=== PATIENT | female | born 1965 | race Caucasian/White ===

== ENCOUNTER 2018-06-14 12:27 | Outpatient (REF) | payer OTHER, SELFPAY | END 2018-06-14 12:47 | LOC: NCHCN 12:27 | PROVIDERS: PCP Family Medicine; Visit Provider Nurse Practitioner Family | DX: R55 Syncope and collapse (principal) | CPT/HCPCS: 87077; 87086; 87186 ==

== ENCOUNTER 2019-05-07 14:20 | Outpatient (REF) | payer OTHER, SELFPAY ==
--- NOTE | 2019-05-07 13:45 | PAPNONF_PTH ---
PATIENT: Megan Corral LOC: [facility] U#:[id number] AGE/SX: 54/F ROOM: RE05/07/[address]: Shelby Montoya : 1965 BED: DIS: 05/07/2019 SPEC #: [id number] RECD: 05/08/19 12:51 STATUS: MARY RERay #: [id number] HERIBERTO: 05/07/19 13:[address]: Shelby Montoya DEPT: [facility] Cytology RECD BY: Latesha Barnett ENTERED: 05/08/19 12:51 SP TYPE: SHAKA GARSIA DR: Yescia Abarca MD Tissues: 1 - BODY FLUID CYTO(SPUTUM/URINE)[facility] Procedures: BODY FLUID CYTO(URINE/SPUTUM) Comments: [id number] (TOTAL VOLUME = 40 ml's) (40 ml's URINE & 40 ml's CYTOLYT ADDED)
== END 2019-05-07 14:40 ==
LOC: NCHCN 14:20
PROVIDERS: PCP Family Medicine; Visit Provider Nurse Practitioner Family
DX: N39.0 Urinary tract infection, site not specified (principal); R31.9 Hematuria, unspecified
CPT/HCPCS: 87086; 88104

== ENCOUNTER 2019-05-29 16:47 | Outpatient (REF) | payer OTHER, SELFPAY ==
[2019-05-29 20:42] LABS: HCT 38.8 % (36.0-46.0); HGB 13.5 g/dL (12.0-15.5); Mean Corp. HGB Concentration 34.8 g/dL (32.0-36.0); Mean Corpuscular Hemoglobin 31.9 pg (27.0-33.0); Mean Corpuscular Volume 91.7 fL (80-95); Mean Platelet Volume 9.8 fL (8.0-11.0); Platelet Count 237 x1000/uL (130-400); RBC 4.23 m/cumm (4.00-5.20); RBC Distribution Width 13.1 % (11.7-14.6)
[2019-05-30 00:03] LABS: Anion Gap 10.3 mmol/L (3-11); BUN 20 mg/dL (7-18); CO2 25.7 mmol/L (21.0-32.0); CREATININE 0.94 mg/dL (0.55-1.02); Calcium 8.5 mg/dL (8.5-10.1); Chloride 104 mmol/L (98-107); Glucose 89 mg/dL (70-100); Potassium 3.8 mmol/L (3.5-5.1); Sodium 140 mmol/L (136-145)
[2019-05-31 10:28] LABS: HIV-1/2 Ag & Ab Screen Negative (NEGAT)
[2019-05-31 10:29] LABS: Hepatitis C Ab w Rflx HCV PCR Negative (NEGAT)
[2019-05-31 11:59] LABS: Lyme Ab w Rflx to Lyme Confirm Negative
[2019-06-01 23:37] LABS: Anaplasma phagocytophilum Negative (Negative); B. miyamotoi PCR Negative (Negative); Babesia divergens/MO-1 Negative (Negative); Babesia duncani Negative (Negative); Babesia microti Negative (Negative); Ehrlichia chaffeensis Negative (Negative); Ehrlichia ewingii/canis Negative (Negative); Ehrlichia muris eauclairensis Negative (Negative)
== END 2019-05-29 17:07 ==
LOC: NCHCN 16:47
PROVIDERS: PCP Family Medicine; Visit Provider Nurse Practitioner Family
DX: N95.9 Unspecified menopausal and perimenopausal disorder (principal); N95.1 Menopausal and female climacteric states; Z11.4 Encounter for screening for human immunodeficiency virus [HIV]; Z11.59 Encounter for screening for other viral diseases
CPT/HCPCS: 80048; 85027; 86803; 87389; 87798; 84443; 86618

== ENCOUNTER 2019-08-22 00:32 | Outpatient (CLI) | payer OTHER, SELFPAY ==
--- NOTE | 2019-08-22 15:05 | DI.CTLCSR_ITS ---
EXAM: CT CHEST LUNG CANCER SCREEN CLINICAL HISTORY: TOBACCO ABUSE CONTINUOUS, F17.200 TECHNIQUE: CT examination of the chest was performed utilizing lung cancer screening protocol with l ow-dose acquisition. COMPARISON: No exams were available for comparison FINDINGS: Images obtained through the upper abdomen show grossly unremarkable appearance of visualized portions of liver, spleen and kidneys. No intrapulmonary nodule is seen. There is no mediastinal or hilar a denopathy. Tracheobronchial tree appears intact. No pleural effusion. There are severe pulmonary emphysematous changes, predominantly central lobular. IMPRESSION: Negative lung cancer screening CT, severe central lobular emphysematous changes noted. Category 1. A nnual screening recommended in 12 months. Lung RADS Cat 1 - Negative: No nodules and definitely benign nodules
== END 2019-08-22 00:52 ==
PROVIDERS: PCP Family Medicine; Visit Provider Nurse Practitioner Family
DX: F17.200 Nicotine dependence, unspecified, uncomplicated (principal); Z12.2 Encounter for screening for malignant neoplasm of respiratory organs; J43.8 Other emphysema
CPT/HCPCS: G0297

== ENCOUNTER 2020-09-18 19:27 | Outpatient (REF) | payer BC, SELFPAY ==
[2020-09-18 20:17] LABS: Absolute Basophil Count 0.03 10^3/uL (0.0-0.2); Absolute Eosinophil Count 0.08 10^3/uL (0.0-0.7); Absolute Lymphocyte Count 1.74 10^3/uL (1.2-3.4); Absolute Monocyte Count 0.42 10^3/uL (0.1-0.8); Absolute Neutrophil Count 1.61 10^3/uL (1.2-6.7); Basophils % 0.8; Eosinophils % 2.1; HCT 38.5 % (36.0-46.0); HGB 12.9 g/dL (11.2-15.7); Lymphocytes % 44.8; MCHC 33.5 % (32.0-36.0); MCV 92.5 fL (80-95); MPV 9.9 fL (8.0-11.0); Monocytes % 10.8; Neutrophils % 41.5; Nucleated RBC 0 %; Platelet Count 195 10^3/uL (130-400); RBC 4.16 10^6/uL (3.93-5.22); WBC 3.88 10^3/uL (4.4-10.8)
[2020-09-18 20:39] LABS: ALT 24 U/L (14-59); AST 21 U/L (15-37); Albumin 3.9 g/dL (3.4-5.0); Alkaline Phosphatase 62 U/L (46-116); Anion Gap 3.9 mmol/L (3-11); BUN 19 mg/dL (7-18); Bilirubin, Total 0.2 mg/dL (0.2-1.0); CO2 30.1 mmol/L (21.0-32.0); CREATININE 0.99 mg/dL (0.55-1.02); Calcium 8.5 mg/dL (8.5-10.1); Chloride 105 mmol/L (98-107); Estimated GFR 58.02 (mL/min/1.73m2); Glucose 107 mg/dL (74-106); Potassium 4.2 mmol/L (3.5-5.1); Sodium 139 mmol/L (136-145); TSH (W/Ref FT4) 3.78 uIU/mL (0.36-3.74)
[2020-09-18 20:59] LABS: FREE T4 0.83 ng/dL (0.76-1.46)
== END 2020-09-18 19:47 ==
LOC: NCHCN 19:27
PROVIDERS: PCP Family Medicine; Visit Provider Physician Assistant
DX: Z00.00 Encounter for general adult medical examination without abnormal findings (principal); F17.200 Nicotine dependence, unspecified, uncomplicated; N95.1 Menopausal and female climacteric states; F32.9 Major depressive disorder, single episode, unspecified; K21.9 Gastro-esophageal reflux disease without esophagitis
CPT/HCPCS: 80053; 84439; 84443; 85025

== ENCOUNTER 2020-09-24 11:57 | Outpatient (REF) | payer BC, SELFPAY ==
[2020-09-25 16:46] LABS: COVID-19 RT-PCR UVMMC Result Positive (Negative)
== END 2020-09-24 12:17 ==
LOC: NCHCN 11:57
PROVIDERS: PCP Family Medicine; Visit Provider Internal Medicine
DX: Z20.822 Contact with and (suspected) exposure to COVID-19 (principal)
CPT/HCPCS: U0003

== ENCOUNTER 2020-12-08 13:38 | Outpatient (CLI) | payer BC, SELFPAY ==
--- NOTE | 2020-12-08 12:45 | DI.RAD_ITS ---
EXAM: XR SHOULDER RT COMPLETE 2+V CLINICAL HISTORY: right shoulder pain TECHNIQUE: COMPARISON: No exams were available for comparison FINDINGS: Two views were obtained. The cartilaginous joint space of the glenohumeral joint appears fairly well maintained. The AC joint appears intact. No significant bony abnormality seen. No soft tissue jess cification identified. IMPRESSION: Negative examination of the shoulder RADIATION DOSE DELIVERED: Total DLP
--- NOTE | 2020-12-08 13:15 | DI.RAD_ITS ---
EXAM: XR ELBOW RT COMPLETE CLINICAL HISTORY: right elbow pain TECHNIQUE: COMPARISON: No exams were available for comparison FINDINGS: Three views were obtained. There is no evidence of an elbow joint effusion or hemarthrosis. No bony abnormality seen. IMPRESSION: RADIATION DOSE DELIVERED: Total DLP
== END 2020-12-08 13:39 | disposition home or self-care (01) ==
LOC: DIORS 13:38
PROVIDERS: PCP Internal Medicine; Referring Provider Internal Medicine; Visit Provider Student in an Organized Health Care Education/Training Program
DX: M25.521 Pain in right elbow (principal); M25.511 Pain in right shoulder
CPT/HCPCS: 73030; 73080

== ENCOUNTER → 2022-05-24 00:51 | Outpatient (CLI) | payer OTHER, SELFPAY ==
--- NOTE | 2022-05-24 10:00 | DI.MRI_ITS ---
Exam(s) MR LUMBAR SPINE WO EXAM: MR LUMBAR SPINE WO CLINICAL HISTORY: CHRONIC LBP, M54.59, S/P WORK INJURY 01/17, SOME IMPROVEMENT W/PT. TECHNIQUE: Multiplanar multisequence MRI of the Lumbar spine was performed. COMPARISON: No exams were available for comparison FINDINGS: There are no plain films available time this MRI interpretation. Therefore 5 lumbar vertebrae are presumed. Conus medullaris is at normal level. There is no evidence of conus mass nor subjacent clumping of in trathecal nerve roots to suggest arachnoiditis. The distal thecal sac appears unremarkable.There is no evidence of Tarlov intrasacral cysts nor other significant findings within the sacral canal. Bones:There are transverse fracture lines in both L4 and L5 vertebral bodies without vertebral height loss and with only minimal bone edema evident in these 2 vertebral bodies. Suspect subacute fractur es. Also small Schmorl's node invagination at superior endplate of L3. With respect to the individual levels... T12-L1: Unremarkable L1-2: Normal disc height and signal. No disc herniation nor central canal stenosis.No foraminal steno sis L2-3: There is mild disc height loss on the right side of this disc space. There is no significant d isc herniation or central canal stenosis. There is no significant foraminal stenosis at this level. No facet arthropathy L3-4: There is anterolisthesis of L3 upon L4, with approximately 6 millimeters anterior slippage of L 3 upon L4, this related to advanced facet arthropathy. There are no pars defects at this level. No pars fractures. There is severe central spinal canal stenosis at this level.This is related to the b road pseudo herniation of the annulus, short AP dimensions the pedicles and degenerative changes in t he facet joints.There is also moderate bilateral foraminal stenosis at this level due to the anterior slippage with the lateral recesses being carried forward and there is also mild disc height loss con tributing. The exiting nerve roots are impinged slightly between the overlying L3 pedicles and subja cent pseudo herniation of the annulus. L4-5: This level exhibits advanced uniform disc height loss and bilateral osteophytes. There is mild -moderate symmetrical annular bulging. Mild central canal stenosis. There is, however, no evidence of significant foraminal stenosis at this level despite the amount of disc height loss here. This is related to fact that the facet joints exhibit minimal if any significant degenerative change. L5-S1: Normal disc height and signal. There is relatively symmetrical annular bulging. Mild central canal stenosis. There is an element of left-sided foraminal stenosis at this level. This is due to annular bulging into the floor of the exiting left neural foramen and resultant impingement of the e xiting left nerve root at this level between this annular bulging and the overlying L5 left pedicle. There is milder foraminal stenosis on the right side at this level as there is less annular bulging in the floor of the exiting right neural foramen. Soft tissues: paraspinal soft tissues appear unremarkable. IMPRESSION: 1. Severe central spinal canal stenosis at L3-4 level, as described above. This is related to degene rative anterolisthesis of L3 upon L4 which in turn is related to facet arthropathy. There is also an element moderate bilateral foraminal stenosis at this level, as described above. 2. There are nonacute appearing fracture lines through the waist of both L4 and L5 vertebral bodies ( parallel to the endplates) without vertebral body height loss and with only minimal bone edema in the se vertebral bodies. Findings are consistent with subacute fractures in these 2 vertebral bodies. 3. Other level findings as detailed above. DATA REPOSITORY:
== END ==
PROVIDERS: PCP Internal Medicine; Visit Provider Physician Assistant
DX: M43.16 Spondylolisthesis, lumbar region (principal); M48.56XA Collapsed vertebra, not elsewhere classified, lumbar region, initial encounter for fracture
CPT/HCPCS: 72148